=== PATIENT | female | born 1935 | race Caucasian/White ===

== ENCOUNTER → 2019-04-18 | Outpatient (CLI) | payer MEDICARE ==
[~2019-04-18] MED LIST: AMLO5TAB9 PO; ASPI-1012 PO; ATEN50TA PO; CHOL100040 PO; LEVO175T9 PO; METF-444 PO; OMEP-50 PO; QUESTRAN LIGHT PO; SIMV-43 PO; TRAM50TA4 PO
== END | disposition home or self-care (01) ==
LOC: SHCH 12:39
PROVIDERS: ATTEND Internal Medicine Cardiovascular Disease
DX: I65.23 Occlusion and stenosis of bilateral carotid arteries (principal); I05.9 Rheumatic mitral valve disease, unspecified
CPT/HCPCS: 93306; 93880